=== PATIENT | male | born 1950 | race Caucasian/White ===

== ENCOUNTER 2017-09-06 21:13 | Emergency (ER) | payer MEDICARE ==
[2017-09-07] MEDS ORDERED: FUROSEMIDE 40 MG TABLET PO ONE (02:00)
--- NOTE | 2017-09-07 02:06 | ER Document Report ---
ED General - General Chief Complaint: Feet Swelling Stated Complaint: FEET AND ANKLES SWOLLEN Time Seen by Provider: 09/07/17 01:05 Mode of Arrival: Ambulatory Information source: Patient Notes: A 66-year-old male with a history of diabetes, hypertension, diabetic neuropathy presents with complaints of lower extremity edema. Patient states that he has noticed leg swelling over the last 2 days. Patient has been recently homeless and staying in his truck. He states he cannot stay in the [facility] because they will not allow his dog to come with him. He has had prior similar symptoms but states this is the worst it has been. He states he has been sitting a lot. He denies any headache, blurred vision, nausea, vomiting, chest pain, shortness of breath, abdominal pain, back pain. He has been taking his hypertensive and diabetic medications as prescribed. He states he is currently out of his gabapentin which he takes 400 mg twice daily. TRAVEL OUTSIDE OF THE [place] IN LAST 30 DAYS: No - Related Data Allergies/Adverse Reactions: No Known Allergies Allergy (Verified 11/14/14 19:23) Past Medical History - Social History Smoking Status: Never Smoker Chew tobacco use (# tins/day): No Frequency of alcohol use: Occasional Drug Abuse: None Family History: Arthritis, CAD, CVA, DM, Hyperlipidemia, Hypertension, Malignancy Patient has suicidal ideation: No Patient has homicidal ideation: No - Past Medical History Cardiac Medical History: Reports: Hx Hypercholesterolemia, Hx Hypertension Pulmonary Medical History: Reports: Hx Pneumonia Neurological Medical History: Endocrine Medical History: Reports: Hx Diabetes Mellitus Type 2 Renal/ Medical History: Denies: Hx Peritoneal Dialysis Musculoskeltal Medical History: Reports Hx Arthritis - back,hands Skin Medical History: Reports Hx Cellulitis Psychiatric Medical History: Reports: Hx Depression Past Surgical History: Reports: Hx Abdominal Surgery - hernia, Hx Orthopedic Surgery - Right foot, Right Hand - Immunizations Hx Diphtheria, Pertussis, Tetanus Vaccination: Yes Hx Pneumococcal Vaccination: 06/04/09 Physical Exam - Vital signs Vitals: Temp Pulse Resp BP Pulse Ox 97.9 F 70 18 147/76 H 96 09/06/17 21:19 09/06/17 21:19 09/06/17 21:19 09/06/17 21:19 09/06/17 21:19 Course - Re-evaluation Re-evalutation: Chest X-Ray 09/07/17 01:59 IMPRESSION: 1. No acute pulmonary process identified. Laboratory 09/07/17 09/07/17 09/07/17 02:20 02:20 02:20 WBC 6.3 RBC 4.22 L Hgb 13.7 Hct 40.7 MCV 96 MCH 32.5 MCHC 33.7 RDW 13.6 Plt Count 201 Seg Neutrophils % 59.0 Lymphocytes % 25.4 Monocytes % 12.1 Eosinophils % 2.8 Basophils % 0.7 Absolute Neutrophils 3.7 Absolute Lymphocytes 1.6 Absolute Monocytes 0.8 Absolute Eosinophils 0.2 Absolute Basophils 0.0 Sodium 141.1 Potassium 4.2 Chloride 100 Carbon Dioxide 29 Anion Gap 12 BUN 15 Creatinine 0.86 Est GFR ( Amer) > 60 Est GFR (Non-Af Amer) > 60 Glucose 369 H Calcium 9.5 Total Bilirubin 0.4 Direct Bilirubin 0.3 Neonat Total Bilirubin Not Reportable Neonat Direct Bilirubin Not Reportable Neonat Indirect Bili Not Reportable AST 18 ALT 28 Alkaline Phosphatase 78 NT-Pro-B Natriuret Pep 160 Total Protein 6.9 Albumin 4.2 09/07/17 04:35 66-year-old male with a history of diabetes, hypertension, diabetic neuropathy presents with complaints of lower extremity edema. Patient states that he has noticed leg swelling over the last 2 days. Patient has been recently homeless and staying in his truck. Patient without shortness of breath or chest pain. Vital signs stable upon arrival. Patient does not appear toxic or dehydrated. He is in no acute distress. Exam is significant for mild erythema of the bottom of his feet bilaterally some maceration of his skin, no open wounds and no evidence of infection. Found to have an elevated glucose without evidence of DKA. Chest x-ray is without evidence of pleural effusion or cardiomegaly. BNP is mildly elevated. CBC is without leukocytosis or anemia. CMP shows elevated glucose without evidence of DKA or other electrolyte abnormality. Patient's feet were soaked and cleaned. He was provided socks. There are no open wounds at this time, but I did discuss with the patient that with his diabetes his feet being consistently wet could lead to skin break down and infection. He received p.o. Lasix in the department. He had good urinary output. Patient states that he is able to stay with his daughter temporarily. He is requesting refill of his gabapentin which I have provided. Patient advised to keep his feet clean and dry and to were christiano hose 09/07/17 04:48 Patient was administered subcu insulin 15 units. He does state that he ate a big dinner of pasta prior to arrival which is likely the cause for his elevated glucose. He was also provided CHRISTIANO hose in the department. He is comfortable with discharge home. 09/09/17 09:57 - Vital Signs Vital signs: Temp Pulse Resp BP Pulse Ox 98.1 F 73 16 160/97 H 97 09/07/17 05:14 09/07/17 05:14 09/07/17 05:14 09/07/17 05:14 09/07/17 05:14 - Laboratory Result Diagrams: 09/07/17 02:20 09/07/17 02:20 Laboratory results interpreted by me: 09/07/17 09/07/17 09/07/17 02:20 02:20 05:00 RBC 4.22 L Glucose 369 H POC Glucose 316 H Discharge - Discharge Clinical Impression: Peripheral edema, Hyperglycemia, Neuropathy, Skin maceration Condition: Good Disposition: HOME, SELF-CARE Instructions: Edema, Peripheral ([facility]), Hyperglycemia ([facility]) Additional Instructions: Please keep your feet clean and dry. Prescriptions: Furosemide [Lasix 20 mg Tablet] 20 mg PO DAILY 7 Days #7 tablet Gabapentin 400 mg PO BID 15 Days #30 capsule Referrals: ARMOND LLOYD DO [Primary Care Provider] - Follow up in 3-5 days
[2017-09-07 02:32] LABS: ABSOLUTE EOSINOPHILS # (AUTO) 0.2 10^3/uL (0.0-0.6); ABSOLUTE LYMPHOCYTES (AUTO) 1.6 10^3/uL (0.5-4.7); ABSOLUTE MONOCYTES (AUTO) 0.8 10^3/uL (0.1-1.4); ABSOLUTE NEUT (AUTO) 3.7 10^3/uL (1.7-8.2); BASOPHILS % (AUTO) 0.7 % (0-2); EOSINOPHILS % (AUTO) 2.8 % (0-6); HEMATOCRIT 40.7 % (37.9-51.0); HEMOGLOBIN 13.7 g/dL (13.5-17.0); LYMPHOCYTES % (AUTO) 25.4 % (13-45); MEAN CORPUSCULAR HEMOGLOBIN 32.5 pg (27.0-33.4); MEAN CORPUSCULAR HGB CONC 33.7 g/dL (32.0-36.0); MEAN CORPUSCULAR VOLUME 96 fl (80-97); MONOCYTES % (AUTO) 12.1 % (3-13); PLATELET COUNT 201 10^3/uL (150-450); RED BLOOD COUNT 4.22 10^6/uL (4.35-5.55); RED CELL DISTRIBUTION WIDTH 13.6 % (11.5-14.0); TOTAL CELLS COUNTED % (AUTO) 100 %; WHITE BLOOD COUNT 6.3 10^3/uL (4.0-10.5)
[2017-09-07 02:43] LABS: ALANINE AMINOTRANSFERASE 28 U/L (21-72); ALBUMIN 4.2 g/dL (3.5-5.0); ALKALINE PHOSPHATASE 78 U/L (38-126); ANION GAP 12 (5-19); ASPARTATE AMINO TRANSFERASE 18 U/L (17-59); BILIRUBIN,DIRECT 0.3 mg/dL (0.0-0.4); BILIRUBIN,TOTAL 0.4 mg/dL (0.2-1.3); BLOOD UREA NITROGEN 15 mg/dL (7-20); CALCIUM 9.5 mg/dL (8.4-10.2); CARBON DIOXIDE 29 mmol/L (22-30); CHLORIDE 100 mmol/L (98-107); GLUCOSE 369 mg/dL (75-110); POTASSIUM 4.2 mmol/L (3.6-5.0); SODIUM 141.1 mmol/L (137-145); TOTAL PROTEIN 6.9 g/dL (6.3-8.2)
--- NOTE | 2017-09-07 03:37 | RADIOLOGY REPORT (SQ) ---
EXAM DESCRIPTION: CHEST 2 VIEWS CLINICAL HISTORY: edema COMPARISON: 11/14/2014 FINDINGS: Frontal and lateral views of the chest. Tortuosity of thoracic aorta. Heart is not enlarged. Low lung volumes. No consolidation, pneumothorax, or pleural effusion. No displaced rib fractures identified. Upper abdominal soft tissues are unremarkable. IMPRESSION: 1. No acute pulmonary process identified.
[2017-09-07] MEDS ORDERED: INSULIN LISPRO 100 UNIT/ML 3 ML VIAL SUBCUT ONE (03:56)
[2017-09-07 05:15] VITALS: BP 160/97
== END 2017-09-07 05:15 | disposition home or self-care (01) ==
LOC: ER 21:13
DX: R60.0 Localized edema (principal); E11.65 Type 2 diabetes mellitus with hyperglycemia; E11.40 Type 2 diabetes mellitus with diabetic neuropathy, unspecified; L98.8 Other specified disorders of the skin and subcutaneous tissue; I10 Essential (primary) hypertension; Z59.0 Homelessness; Z79.899 Other long term (current) drug therapy
CPT/HCPCS: 99284; 36415; 82962; 85025; 80053; 83880; 71046; A9270 ×2; J1815

== ENCOUNTER → 2017-10-23 | Outpatient (CLI) | payer MEDICARE ==
--- NOTE | 2017-10-23 14:01 | RADIOLOGY REPORT (SQ) ---
EXAM DESCRIPTION: HIP RIGHT AP/LATERAL COMPLETED DATE/TIME: 10/23/2017 1:46 pm REASON FOR STUDY: R60.9 EDEMA, UNSPECIFIED M54.5 LOW BACK PAIN M25.559 PAIN IN UNSPECIFIED HI R60.9 EDEMA, UNSPECIFIED M54.5 LOW BACK PAIN E11.40 TYPE 2 DIABETES MELLITUS WITH DIABETIC NEUROPATHY, U N COMPARISON: Sacrum and lumbar spine films same date CT abdomen and pelvis 09/12/2013 NUMBER OF VIEWS: Two views. TECHNIQUE: AP pelvis and additional frog-leg view of the right hip. LIMITATIONS: None. FINDINGS: MINERALIZATION: Osteopenic RIGHT HIP: No fracture or dislocation. No worrisome bone lesions. LEFT HIP: No fracture or dislocation. No worrisome bone lesions. PUBIS AND ISCHIUM: No fracture. PELVIS: No fracture. SACRUM: No fracture or dislocation. No worrisome bone lesions. LOWER LUMBAR SPINE: No fracture or dislocation. No worrisome bone lesions. No significant disc disea se. SOFT TISSUES: No findings. OTHER: No other significant finding. IMPRESSION: NEGATIVE STUDY OF THE RIGHT HIP. NO RADIOGRAPHIC EVIDENCE OF ACUTE INJURY. TECHNICAL DOCUMENTATION: JOB ID: [id number] [employer]- All Rights Reserved Reading location - IP/workstation name: [email or web address]
--- NOTE | 2017-10-23 14:02 | RADIOLOGY REPORT (SQ) ---
EXAM DESCRIPTION: L SPINE WHOLE COMPLETED DATE/TIME: 10/23/2017 1:46 pm REASON FOR STUDY: R60.9 R60.9 EDEMA, UNSPECIFIED M54.5 LOW BACK PAIN E11.40 TYPE 2 DIABETES MORTEZA [place] WITH DIABETIC NEUROPATHY, UN COMPARISON: Sacrum and coccyx same date, CT abdomen pelvis 09/12/2013 NUMBER OF VIEWS: Five views including obliques. TECHNIQUE: AP, lateral, oblique, and sacral radiographic images acquired of the lumbar spine. LIMITATIONS: None. FINDINGS: MINERALIZATION: Normal. SEGMENTATION: Normal. No transitional anatomy. ALIGNMENT: Normal. VERTEBRAE: Maintained height. No fracture or worrisome bone lesion. DISCS: Disc space loss of height at L4-5 and L5-S1. POSTERIOR ELEMENTS: Pedicles and facets are intact. No pars defect or posterior arch defects. Mild bilateral facet arthropathy at L4-5 HARDWARE: None in the spine. PARASPINAL SOFT TISSUES: Normal. PELVIS: Not included in the field of view. SI joints are unremarkable. OTHER: No other significant finding. IMPRESSION: Degenerative changes at L4-5 TECHNICAL DOCUMENTATION: JOB ID: [id number]- All Rights Reserved Reading location - IP/workstation name: [email or web address]
--- NOTE | 2017-10-23 14:04 | RADIOLOGY REPORT (SQ) ---
EXAM DESCRIPTION: SACRUM AND COCCYX COMPLETED DATE/TIME: 10/23/2017 1:46 pm REASON FOR STUDY: PAIN R60.9 EDEMA, UNSPECIFIED M54.5 LOW BACK PAIN E11.40 TYPE 2 DIABETES MELLIT US WITH DIABETIC NEUROPATHY, UN COMPARISON: Right hip films same date NUMBER OF VIEWS: Three views. TECHNIQUE: AP, lateral, and tilt views of the sacrum and coccyx. LIMITATIONS: None. FINDINGS: MINERALIZATION: Osteopenic BONES: No acute fracture or dislocation. No worrisome bone lesions. SOFT TISSUES: No soft tissue swelling. No foreign body. OTHER: No other significant finding. IMPRESSION: NEGATIVE STUDY OF THE SACRUM AND COCCYX. TECHNICAL DOCUMENTATION: JOB ID: [id number] [employer]- All Rights Reserved Reading location - IP/workstation name: [email or web address]
--- NOTE | 2017-10-23 14:04 | RADIOLOGY REPORT (SQ) ---
EXAM DESCRIPTION: TIBIA FIBULA RIGHT COMPLETED DATE/TIME: 10/23/2017 1:46 pm REASON FOR STUDY: R60.9 R60.9 EDEMA, UNSPECIFIED M54.5 LOW BACK PAIN E11.40 TYPE 2 DIABETES MORTEZA [place] WITH DIABETIC NEUROPATHY, UN COMPARISON: None. NUMBER OF VIEWS: Two views. TECHNIQUE: Two radiographic images acquired of the right tibia and fibula to include the knee and an kle in at least one projection. LIMITATIONS: None. FINDINGS: MINERALIZATION: Normal. BONES: No acute fracture or dislocation. No worrisome bone lesions. SOFT TISSUES: No obvious swelling or foreign body. OTHER: No other significant finding. IMPRESSION: NEGATIVE STUDY OF THE RIGHT TIBIA AND FIBULA. NO RADIOGRAPHIC EVIDENCE OF ACUTE INJURY. TECHNICAL DOCUMENTATION: JOB ID: [id number] [employer]- All Rights Reserved Reading location - IP/workstation name: [facility]
== END ==
LOC: RAD 12:44
PROVIDERS: ATTEND Nurse Practitioner Family
DX: M54.5 Low back pain (principal); E11.40 Type 2 diabetes mellitus with diabetic neuropathy, unspecified; R60.9 Edema, unspecified; M25.551 Pain in right hip
CPT/HCPCS: 72110; 72220

== ENCOUNTER 2018-04-14 23:39 | Emergency (ER) | payer MEDICARE ==
[2018-04-15 01:02] LABS: ABSOLUTE BASOPHILS # (AUTO) 0.1 10^3/uL (0.0-0.2); ABSOLUTE EOSINOPHILS # (AUTO) 0.2 10^3/uL (0.0-0.6); ABSOLUTE LYMPHOCYTES (AUTO) 2.3 10^3/uL (0.5-4.7); ABSOLUTE MONOCYTES (AUTO) 0.8 10^3/uL (0.1-1.4); ABSOLUTE NEUT (AUTO) 2.7 10^3/uL (1.7-8.2); EOSINOPHILS % (AUTO) 3.7 % (0-6); HEMOGLOBIN 13.5 g/dL (13.5-17.0); LYMPHOCYTES % (AUTO) 38.5 % (13-45); MEAN CORPUSCULAR HEMOGLOBIN 32.1 pg (27.0-33.4); MEAN CORPUSCULAR HGB CONC 33.7 g/dL (32.0-36.0); MEAN CORPUSCULAR VOLUME 95 fl (80-97); MONOCYTES % (AUTO) 12.9 % (3-13); PLATELET COUNT 199 10^3/uL (150-450); RED CELL DISTRIBUTION WIDTH 13.2 % (11.5-14.0); SEGMENTED NEUTROPHILS % (AUTO) 43.9 % (42-78); TOTAL CELLS COUNTED % (AUTO) 100 %; WHITE BLOOD COUNT 6.1 10^3/uL (4.0-10.5)
[2018-04-15 01:28] LABS: ANION GAP 14 (5-19); BLOOD UREA NITROGEN 20 mg/dL (7-20); CALCIUM 9.3 mg/dL (8.4-10.2); CARBON DIOXIDE 27 mmol/L (22-30); CHLORIDE 104 mmol/L (98-107); GLUCOSE 120 mg/dL (75-110); POTASSIUM 4.9 mmol/L (3.6-5.0); SODIUM 144.8 mmol/L (137-145)
[2018-04-15] MEDS ORDERED: FUROSEMIDE 40 MG TABLET PO ONE (01:54)
--- NOTE | 2018-04-15 01:57 | ER Document Report ---
ED General - General Chief Complaint: Foot Pain Stated Complaint: FOOT PAIN Time Seen by Provider: 04/15/18 00:35 Notes: Patient is a 67-year old male with a past medical history of hypertension, chronic bilateral lower extremity edema who presents with complaints of bilateral lower extremity pain and swelling. Patient states this is a long- standing issue that is worse in the last several weeks. He also notes a dull, throbbing, constant pain to both legs worse to the left foot. He has been taking furosemide with minimal improvement of his symptoms. He has not been wearing the compression stockings that were provided during his last visit to the emergency department. He denies any chest pain, shortness of breath, orthopnea. He has not seen his general doctor regarding today's concerns. Nothing worsens his symptoms. TRAVEL OUTSIDE OF THE [place] IN LAST 30 DAYS: No - Related Data Allergies/Adverse Reactions: No Known Allergies Allergy (Verified 11/14/14 19:23) Past Medical History - General Information source: Patient - Social History Smoking Status: Never Smoker Frequency of alcohol use: None Drug Abuse: None Lives with: Homeless Family History: Arthritis, CAD, CVA, DM, Hyperlipidemia, Hypertension, Malignancy Patient has suicidal ideation: No Patient has homicidal ideation: No - Past Medical History Cardiac Medical History: Reports: Hx Hypercholesterolemia, Hx Hypertension Pulmonary Medical History: Reports: Hx Pneumonia Neurological Medical History: Endocrine Medical History: Reports: Hx Diabetes Mellitus Type 2 Renal/ Medical History: Denies: Hx Peritoneal Dialysis Musculoskeletal Medical History: Reports Hx Arthritis - back,hands Skin Medical History: Reports Hx Cellulitis Psychiatric Medical History: Reports: Hx Depression Past Surgical History: Reports: Hx Abdominal Surgery - hernia, Hx Orthopedic Surgery - Right foot, Right Hand - Immunizations Hx Diphtheria, Pertussis, Tetanus Vaccination: Yes Hx Pneumococcal Vaccination: 06/04/09 Review of Systems - Review of Systems Notes: Constitutional: Negative for fever. HENT: Negative for sore throat. Eyes: Negative for visual changes. Cardiovascular: Negative for chest pain. Respiratory: Negative for shortness of breath. Gastrointestinal: Negative for abdominal pain, vomiting or diarrhea. Genitourinary: Negative for dysuria. Musculoskeletal: Positive for bilateral lower extremity edema and pain Skin: Negative for rash. Neurological: Negative for headaches, weakness or numbness. 10 point ROS negative except as marked above and in HPI. Physical Exam - Vital signs Vitals: Temp Pulse Resp BP Pulse Ox 97.5 F 66 15 126/70 H 92 04/15/18 00:18 04/15/18 00:18 04/15/18 00:18 04/15/18 00:18 04/15/18 00:18 Interpretation: Normal Notes: PHYSICAL EXAMINATION: GENERAL: Well-appearing, well-nourished and in no acute distress. HEAD: Atraumatic, normocephalic. EYES: Pupils equal round and reactive to light, extraocular movements intact, sclera anicteric, conjunctiva are normal. ENT: nares patent, oropharynx clear without exudates. Moist mucous membranes. NECK: Normal range of motion, supple without lymphadenopathy LUNGS: Breath sounds clear to auscultation bilaterally and equal. No wheezes rales or rhonchi. HEART: Regular rate and rhythm without murmurs ABDOMEN: Soft, nontender, normoactive bowel sounds. No guarding, no rebound. No masses appreciated. EXTREMITIES: Normal range of motion, 4+ pitting edema in the bilateral extremities is equal and symmetric. No cyanosis. NEUROLOGICAL: No focal neurological deficits. Moves all extremities spontaneously and on command. PSYCH: Normal mood, normal affect. SKIN: Warm, Dry, normal turgor, no rashes or lesions noted. Course - Re-evaluation Re-evalutation: 04/15/18 01:55 Patient presents with bilateral lower extremity edema and pain. This is a chronic issue. I do not suspect an acute cellulitis based on exam and history. Likewise acute DVT seems highly improbable given the bilateral nature and symmetric nature of the edema. Patient is morbidly obese and I discussed the need for urgent weight loss to reduce the chronic nature of the lower extremity edema and additional health complications. Patient has been placed in compression stockings and his furosemide is been increased from 20 mg daily to 20 mg twice daily for the next 1 week. Labs otherwise unremarkable. At this time will discharge with return precautions and follow-up recommendations. Verbal discharge instructions given a the bedside and opportunity for questions given. Medication warnings reviewed. Patient is in agreement with this plan and has verbalized understanding of return precautions and the need for primary care follow-up in the next 24-72 hours. - Vital Signs Vital signs: Temp Pulse Resp BP Pulse Ox 97.3 F 69 18 134/89 H 97 04/15/18 02:09 04/15/18 02:09 04/15/18 02:09 04/15/18 02:09 04/15/18 02:09 - Laboratory Result Diagrams: 04/15/18 00:50 04/15/18 00:50 Laboratory results interpreted by me: 04/15/18 04/15/18 00:50 00:50 RBC 4.20 L Glucose 120 H Discharge - Discharge Clinical Impression: Bilateral lower extremity edema, Obesity (BMI 30.0-34.9) Condition: Good Disposition: HOME, SELF-CARE Additional Instructions: Please wear compression stockings on both your legs throughout the day to help reduce the swelling in your legs. Take your Lasix 20 mg twice daily for the next 1 week. Return if you develop worsening pain on one side, fever greater than 101F, vomiting, weakness, numbness or any other symptoms that are concerning to you. Referrals: ARMOND LLOYD I, DO [Primary Care Provider] - Follow up as needed
[2018-04-15 02:13] VITALS: BP 134/89
== END 2018-04-15 02:21 | disposition home or self-care (01) ==
LOC: ER 23:39
DX: R60.0 Localized edema (principal); E66.01 Morbid (severe) obesity due to excess calories; M79.672 Pain in left foot; M79.604 Pain in right leg; E11.9 Type 2 diabetes mellitus without complications; I10 Essential (primary) hypertension
CPT/HCPCS: 99283; 36415; 85025; 80048; 83880; A9270

== ENCOUNTER → 2018-06-13 | Outpatient (CLI) | payer MEDICARE ==
--- NOTE | 2018-06-13 11:13 | RADIOLOGY REPORT (SQ) ---
EXAM DESCRIPTION: VENOUS BILATERAL LOWER COMPLETED DATE/TIME: 06/13/2018 11:05 am REASON FOR STUDY: LOCALIZED EDEMA R60.0 LOCALIZED EDEMA COMPARISON: None. TECHNIQUE: Dynamic and static montgomery scale and color images acquired of both lower extremity venous sy stems. Selected spectral images acquired with additional compression and augmentation maneuvers. Imag es stored on PACS. LIMITATIONS: Overlying bandage material. FINDINGS: RIGHT LEG COMMON FEMORAL AND FEMORAL: Normal phasicity, compression and augmentation. No visualized echogenic m aterial on montgomery scale. No defects on color images. POPLITEAL: Normal compression and augmentation. No visualized echogenic material on montgomery scale. No de fects on color images. CALF VESSELS: Normal compression and augmentation. No visualized echogenic material on montgomery scale. No defects on color image. GSV AND SSV: Normal compression. No visualized echogenic material on montgomery scale. No defects on color images. ANY DEEP VENOUS INSUFFICIENCY: Not evaluated. ANY EVIDENCE OF POPLITEAL CYST: No. OTHER: No other significant finding. LEFT LEG COMMON FEMORAL AND FEMORAL: Normal phasicity, compression and augmentation. No visualized echogenic m aterial on montgomery scale. No defects on color images. POPLITEAL: Normal compression and augmentation. No visualized echogenic material on montgomery scale. No de fects on color images. CALF VESSELS: Normal compression and augmentation. No visualized echogenic material on montgomery scale. No defects on color images. GSV AND SSV: Normal compression. No visualized echogenic material on montgomery scale. No defects on color images. ANY DEEP VENOUS INSUFFICIENCY: Not evaluated. ANY EVIDENCE POPLITEAL CYST: No. OTHER: No other significant finding. IMPRESSION: NO EVIDENCE DVT OR SVT IN EITHER LEG. TECHNICAL DOCUMENTATION: JOB ID: [id number] [employer]- All Rights Reserved Reading location - IP/workstation name: [email or web address]
== END ==
LOC: SP 09:41
PROVIDERS: ATTEND Physician Assistant
DX: R60.0 Localized edema (principal)
CPT/HCPCS: 93970

== ENCOUNTER → 2019-01-21 | Outpatient (CLI) | payer MEDICARE ==
--- NOTE | 2019-01-21 12:50 | RADIOLOGY REPORT (SQ) ---
EXAM DESCRIPTION: HIP RIGHT AP/LATERAL COMPLETED DATE/TIME: 01/21/2019 12:39 pm REASON FOR STUDY: M25.559 PAIN IN UNSPECIFIED HIP M25.559 PAIN IN UNSPECIFIED HIP COMPARISON: 10/23/2017 NUMBER OF VIEWS: Two views. TECHNIQUE: AP and frog-leg view of the right hip. LIMITATIONS: None. FINDINGS: MINERALIZATION: Normal. RIGHT HIP: No fracture or dislocation. No worrisome bone lesions. OPPOSITE HIP: No fracture or dislocation. No worrisome bone lesions. SOFT TISSUES: No findings. OTHER: No other significant finding. IMPRESSION: NEGATIVE STUDY OF THE RIGHT HIP. NO RADIOGRAPHIC EVIDENCE OF ACUTE INJURY. COMMENT: Pelvic fractures are often occult on plain radiographs. If strong clinical suspicion for f racture, recommend CT or MR. TECHNICAL DOCUMENTATION: JOB ID: [id number] [employer]- All Rights Reserved Reading location - IP/workstation name: [email or web address]
== END ==
LOC: RAD 12:24
PROVIDERS: ATTEND Nurse Practitioner Family
DX: M25.559 Pain in unspecified hip (principal)